=== PATIENT | male | born 1990 | race Caucasian/White ===

== ENCOUNTER 2020-10-15 03:52 | Emergency (ER) | payer OTHER ==
[~2020-10-15 03:52] MED LIST: BROMFED DM COU473 ML PO; KEFLEX500 MG PO; NAPROSYN500 MG PO; PHENERGAN 12.12.5 M1 PO; ROXICODONE5 MG PO; TAB-A-VITE1 EACH PO
[2020-10-15] MEDS ORDERED: CLEOCIN HCL300 MG PO (04:26)
[2020-10-15] MEDS ORDERED: IBUPROFEN600 MG PO (04:26)
== END 2020-10-15 04:38 | disposition home or self-care (01) ==
LOC: ER1 03:52
DX: K08.89 Other specified disorders of teeth and supporting structures (principal); R68.84 Jaw pain; F17.210 Nicotine dependence, cigarettes, uncomplicated
CPT/HCPCS: 99283

== ENCOUNTER 2021-03-14 04:26 | Emergency (ER) | payer OTHER ==
[~2021-03-14 04:26] MED LIST changes: +CLEOCIN HCL300 MG PO; +IBUPROFEN600 MG PO
[2021-03-14] MEDS ORDERED: CEPHALEXIN500 MG PO (06:07)
[2021-03-14] MEDS ORDERED: LODINE CAP 300300 MG PO (06:07)
== END 2021-03-14 06:24 | disposition home or self-care (01) ==
LOC: ER1 04:26
DX: S61.012A Laceration without foreign body of left thumb without damage to nail, initial encounter (principal); Z23 Encounter for immunization; F17.210 Nicotine dependence, cigarettes, uncomplicated; Y04.0XXA Assault by unarmed brawl or fight, initial encounter
CPT/HCPCS: 12002; 73130; 90471; 90715; 99283